=== PATIENT | female | born 1995 | race Hispanic/Latino ===

== ENCOUNTER 2019-01-26 14:07 | Emergency (ER) | payer OTHER, SELFPAY ==
[2019-01-26 14:12] VITALS: BP 116/74; PULSE 124; RESP 16; TEMP 36.6; O2SAT 94; BMI 18.1
== END 2019-01-26 16:31 | disposition left against medical advice (07) ==
PROVIDERS: Emergency Provider Emergency Medicine
DX: S09.90XA Unspecified injury of head, initial encounter (principal)
CPT/HCPCS: 99281

== ENCOUNTER 2021-06-02 13:56 | Emergency (ER) | payer OTHER, MEDICAID, SELFPAY ==
[2021-06-02] VITALS (9 sets, daily range): BP systolic 98–118; BP diastolic 56–76; PULSE 100–124; RESP 18–22; TEMP 36.9; O2SAT 97–100
--- NOTE | 2021-06-02 14:21 | DI.RAD.S_ITS ---
PROCEDURE: XR CHEST 1V INDICATIONS: suspected sepsis TECHNIQUE: One view of the chest was acquired. COMPARISON: [facility], CR, XR TOE LT MIN 2V, 06/02/2021, 14:36. [facility], CR, XR CHEST 1 VIEW, 04/20/2021, 18:00. [facility], CR, XR CHEST 2 VIEWS, 11/07/2017, 1:28. FINDINGS: Surgical changes and devices: None. Lungs and pleura: Lungs are clear. No pleural effusions or pneumothorax. Mediastinum: Mediastinal contours appear normal. Heart size is normal. Bones and chest wall: No suspicious bony lesions. Mild dextroconvex scoliotic curvature is seen. Overlying soft tissues appear unremarkable. IMPRESSION: No focal infiltrates are seen. If there is clinical concern for a developing pulmonary process, a short-term followup chest series (with PA and lateral views, performed in deep inspiration) is suggested for further evaluation. Dictated by: Sae Fuentes M.D. on 06/02/2021 at 13:51 Approved by: Sae Fuentes M.D. on 06/02/2021 at 13:52
--- NOTE | 2021-06-02 14:21 | DI.RAD.S_ITS ---
PROCEDURE: XR TOE LT MIN 2V INDICATIONS: Soft tissue swelling, clinical concern for osteo TECHNIQUE: 3 views of the 2nd toe(s) acquired. COMPARISON: [facility], CR, XR CHEST 1V, 06/02/2021, 14:36. FINDINGS: Bones: There is karon lysis of the distal aspect of the distal phalanx of the 2nd toe. No additional focal bony abnormality is seen. Soft tissues: Focal soft tissue swelling is seen involving the 2nd toe. IMPRESSION: Karon lysis of the distal aspect of the distal phalanx of the 2nd toe, which represents osteomyelitis until proven otherwise. If it would be helpful for clinical management decision making in this patient with this given history, please consider a dedicated forefoot MRI (without and with contrast) for further evaluation (assuming that there is no contraindication). Dictated by: Sae Fuentes M.D. on 06/02/2021 at 13:49 Approved by: Sae Fuentes M.D. on 06/02/2021 at 13:51
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
--- NOTE | 2021-06-02 14:54 | DI.RAD.S_ITS ---
PROCEDURE: XR FOOT RT MIN 3V INDICATIONS: frostbite then trauma TECHNIQUE: 3 views of the foot were acquired. COMPARISON: [facility], CR, XR FOOT LT MIN 3V, 06/02/2021, 14:56. [facility], CR, XR CHEST 1V, 06/02/2021, 14:36. [facility], CR, XR TOE LT MIN 2V, 06/02/2021, 14:36. FINDINGS: Bones: No fractures or dislocations. No suspicious bony lesions. Soft tissues: No tibiotalar joint effusion. Achilles tendon appears normal. IMPRESSION: No significant plain film abnormality is seen. Dictated by: Sae Fuentes M.D. on 06/02/2021 at 14:21 Approved by: Sae Fuentes M.D. on 06/02/2021 at 14:21
--- NOTE | 2021-06-02 14:54 | DI.RAD.S_ITS ---
PROCEDURE: XR FOOT LT MIN 3V INDICATIONS: frostbite then trauma TECHNIQUE: 3 views of the foot were acquired. COMPARISON: [facility], CR, XR FOOT RT MIN 3V, 06/02/2021, 14:56. [facility], CR, XR CHEST 1V, 06/02/2021, 14:36. [facility], CR, XR TOE LT MIN 2V, 06/02/2021, 14:36. [facility], CR, XR FOOT 3+ VIEWS LEFT, 05/17/2021, 11:38. FINDINGS: Bones: At the distal aspect of the distal aspect of the distal phalanx of the 2nd toe, there is new bony license seen, which cannot be seen on the prior plain film study dated 05/17/2021, even in retrospect. No additional focal bony abnormality is seen. Soft tissues: There is soft tissue swelling of the 2nd toe. IMPRESSION: Distal 2nd toe osteomyelitis until proven otherwise. Dictated by: Sae Fuentes M.D. on 06/02/2021 at 14:22 Approved by: Sae Fuentes M.D. on 06/02/2021 at 14:23
[2021-06-02] MEDS: CLINDAMYCIN 900 MG/50 ML PIGGYBACK 50 MG IV (15:00)
[2021-06-02] MEDS: SODIUM CHLORIDE 0.9% 1,000 ML 1000 ML IV (15:00)
[2021-06-02] MEDS: TET,DIPH,PERTUSS(ACELL),VAC/PF 0.5 ML SYRINGE IM (15:01)
[2021-06-02 15:03] LABS: Add Manual Diff / Slide Review NO; Basophils Absolute Auto 100 /uL (0-100); Basophils Percent Auto 0.4 % (0-2); Eosinophils Absolute Auto 0 /uL (0-450); Eosinophils Percent Auto 0.1 % (2-4); Hematocrit 42.9 % (36-46); Hemoglobin 14.4 g/dL (12.0-16.0); Lymphocytes Absolute Auto 1400 /uL (1100-4500); Mean Corpuscular HGB Conc 33.6 % (30-36); Mean Corpuscular Hemoglobin 29.8 PG (26-34); Mean Corpuscular Volume 88.7 fL (80-100); Monocytes Absolute Auto 700 /uL (0-900); Neutrophils Absolute Auto 9700 /uL (1500-7000); Neutrophils Percent Auto 81.5 % (50-75); Platelet Count 255 X10^3/uL (150-400); Red Blood Cell Count 4.84 X10^6/uL (4.0-5.2); Red Cell Distribution Width 13.5 % (11.6-14.8); White Blood Cell Count 11.9 X10^3/uL (4.5-11.0)
[2021-06-02 15:11] LABS: Alanine Aminotransferase 21 IU/L (<35); Albumin 4.6 g/dL (3.5-5.0); Albumin Globulin Ratio 1.1 (1.0-2.8); Alkaline Phosphatase 112 U/L (38-126); Aspartate Aminotransferase 27 IU/L (14-36); BUN Creatinine Ratio 15.2 (6-22); Bilirubin Total 0.5 mg/dL (0.2-1.3); Blood Urea Nitrogen 10 mg/dL (7-17); Calcium 9.4 mg/dL (8.4-10.2); Carbon Dioxide 30 mmol/L (22-32); Chloride 103 mmol/L (98-107); Estimated Glomerular Filt Rate > 60.0 mL/min (>60); Globulin 4.3 g/dL (1.7-4.1); Glucose 55 mg/dL (70-100); HEMOLYSIS < 15 (0-50); Lipase 130 U/L (23-300); Potassium 3.2 mmol/L (3.4-5.1); Sodium 141 mmol/L (137-145); Total Protein 8.9 g/dL (6.3-8.2)
[2021-06-02 15:12] LABS: Lactate (Lactic Acid) 2.2 mmol/L (0.7-2.1)
[2021-06-02 15:28] LABS: Procalcitonin 0.04 ng/mL (<0.5)
[2021-06-02 15:31] LABS: C-Reactive Protein Quant 7.8 mg/dL (<1.0)
[2021-06-02] MEDS: CEFEPIME 2 GM in SODIUM CHLORIDE 0.9% 100 ML 200 ML IV (15:38)
[2021-06-02 15:44] LABS: Erythrocyte Sedimentation Rate 18 MM/HR (0-20)
[2021-06-02 15:47] LABS: COVID19 -Nasal RAPID Negative (Negative)
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
[2021-06-02 16:35] LABS: Reflexed Lactate in 2 Hours Y
[2021-06-02 17:25] LABS: Lactate 2HR (Lactic Acid Rflx) 1.6 mmol/L (0.7-2.1)
== END 2021-06-02 17:07 | disposition home or self-care (01) ==
PROVIDERS: Emergency Provider Emergency Medicine
DX: T34.832A Frostbite with tissue necrosis of left toe(s), initial encounter (principal); T33.821A Superficial frostbite of right foot, initial encounter; T69.8XXA Other specified effects of reduced temperature, initial encounter; M86.9 Osteomyelitis, unspecified; X31.XXXA Exposure to excessive natural cold, initial encounter; Z23 Encounter for immunization; Z20.822 Contact with and (suspected) exposure to COVID-19
CPT/HCPCS: 36415; 71045; 73630; 73660; 80053; 83605; 83690; 84145; 85025; 85651; 86140; 87040; 87635; 90471; 96365; 96366; 96368; 99284; C9803; 90715; J0692

== ENCOUNTER 2021-06-04 11:09 | Emergency (ER) | payer OTHER, MEDICAID, SELFPAY ==
[2021-06-04] VITALS (8 sets, daily range): BP systolic 105–119; BP diastolic 64–69; PULSE 71–100; RESP 14–18; TEMP 36.4; O2SAT 99–100; BMI 17.7
--- NOTE | 2021-06-04 13:17 | PC.NURSE ---
wound appears to be briones bite, skin is black over tip of toe and nail.
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
--- NOTE | 2021-06-04 13:39 | DI.RAD.S_ITS ---
PROCEDURE: XR FOOT LT MIN 3V INDICATIONS: 2nd toe osteomyelitis/frostbite TECHNIQUE: 3 views of the foot were acquired. COMPARISON: [facility], CR, XR TOE LT MIN 2V, 06/02/2021, 14:36. [facility], CR, XR FOOT 3+ VIEWS LEFT, 05/17/2021, 11:38. [facility], CR, XR FOOT LT MIN 3V, 06/02/2021, 14:56. FINDINGS: Bones: There is cortical irregularity and lucency in the tuft of the 2nd distal phalanx. No suspicious bony lesions. Soft tissues: No tibiotalar joint effusion. Achilles tendon appears normal. IMPRESSION: Cortical irregularity and lucency of the tuft of the 2nd distal phalanx compatible with osteomyelitis. Dictated by: Chidi Grimes M.D. on 06/04/2021 at 14:12 Approved by: Chidi Grimes M.D. on 06/04/2021 at 14:16
[2021-06-04 14:23] LABS: Add Manual Diff / Slide Review NO; Basophils Absolute Auto 0 /uL (0-100); Basophils Percent Auto 0.5 % (0-2); Eosinophils Absolute Auto 0 /uL (0-450); Eosinophils Percent Auto 0.5 % (2-4); Hematocrit 39.6 % (36-46); Hemoglobin 13.1 g/dL (12.0-16.0); Lymphocytes Absolute Auto 1600 /uL (1100-4500); Mean Corpuscular Hemoglobin 29.6 PG (26-34); Mean Corpuscular Volume 89.8 fL (80-100); Monocytes Absolute Auto 300 /uL (0-900); Monocytes Percent Auto 5.3 % (3-14); Neutrophils Absolute Auto 3500 /uL (1500-7000); Neutrophils Percent Auto 63.7 % (50-75); Platelet Count 288 X10^3/uL (150-400); Red Blood Cell Count 4.41 X10^6/uL (4.0-5.2); Red Cell Distribution Width 13.6 % (11.6-14.8); White Blood Cell Count 5.5 X10^3/uL (4.5-11.0)
[2021-06-04] MEDS: KETOROLAC 30 MG/ML VIAL IV (14:32)
[2021-06-04] MEDS: PIPERACILLIN/TAZO 4.5 GM in SODIUM CHLORIDE 0.9% 100 ML 200 ML IV (14:32)
[2021-06-04] MEDS: SODIUM CHLORIDE 0.9% 1,000 ML 200 ML IV (14:33)
[2021-06-04 14:38] LABS: Alanine Aminotransferase 22 IU/L (<35); Albumin 3.9 g/dL (3.5-5.0); Albumin Globulin Ratio 1.1 (1.0-2.8); Alkaline Phosphatase 95 U/L (38-126); Aspartate Aminotransferase 24 IU/L (14-36); BUN Creatinine Ratio 13.1 (6-22); Bilirubin Total 0.2 mg/dL (0.2-1.3); Blood Urea Nitrogen 8 mg/dL (7-17); Calcium 9.2 mg/dL (8.4-10.2); Carbon Dioxide 26 mmol/L (22-32); Chloride 109 mmol/L (98-107); Estimated Glomerular Filt Rate > 60.0 mL/min (>60); Globulin 3.7 g/dL (1.7-4.1); Glucose 84 mg/dL (70-100); HEMOLYSIS < 15 (0-50); Potassium 3.6 mmol/L (3.4-5.1); Sodium 143 mmol/L (137-145); Total Protein 7.6 g/dL (6.3-8.2)
[2021-06-04 14:43] LABS: Lactate (Lactic Acid) 1.1 mmol/L (0.7-2.1)
[2021-06-04 14:56] LABS: Procalcitonin < 0.03 ng/mL (<0.5)
[2021-06-04 15:11] LABS: Bacteria Urine None Seen; Culture Indicated Urine Cult Not Indicated; RBC Urine 0-1/HPF (0-5/HPF); Squamous Epithelial Cell Urine 0-1 /HPF (0-5/HPF); WBC Urine None Seen (0-5/HPF)
[2021-06-04 15:14] LABS: COVID19 -Nasal RAPID Negative (Negative)
[2021-06-04] MEDS: VANCOMYCIN 1,000 MG/200 ML PIGGYBACK 200 MG IV (15:38)
== END 2021-06-04 16:58 | disposition home or self-care (01) ==
PROVIDERS: Emergency Provider Emergency Medicine
DX: T34.832A Frostbite with tissue necrosis of left toe(s), initial encounter (principal); M86.9 Osteomyelitis, unspecified; Z20.822 Contact with and (suspected) exposure to COVID-19; X31.XXXA Exposure to excessive natural cold, initial encounter
CPT/HCPCS: 36415; 73630; 80053; 81003; 81015; 81025; 83605; 84145; 85025; 87040; 87070; 87075; 87077; 87147; 87186; 87205; 87635; 96365; 96367; 96375; 99284; C9803; J1885; J2543

== ENCOUNTER 2021-06-07 08:37 | Day surgery (SDC) | payer OTHER, MEDICAID, SELFPAY ==
[2021-06-07] VITALS (8 sets, daily range): BP systolic 94–110; BP diastolic 58–77; PULSE 66–77; RESP 10–17; TEMP 36.1–37.1; O2SAT 99–100; BMI 19.3
--- NOTE | 2021-06-07 09:47 | PM.PREOP ---
Pre-operative Note COVID-19 COVID-19 status: Negative Criteria for continued procedure: Expected advancement of disease process, Possibility delay results in more complex future surgery or treatment, Deterioration of the patient's condition or overall health, Delay expected to result in less-positive ultimate med/surg outcome and Non-surgical alternatives not available or appropriate per current SOC Interval Note History & Physical reviewed/Exam performed by Physician: Yes Changes to H&P: No
[2021-06-07] MEDS: LACTATED RINGERS 1,000 ML 42 ML IV (09:53)
[2021-06-07] MEDS: CEFAZOLIN 2 GM/20 ML SYRINGE IV (10:00)
--- NOTE | 2021-06-07 10:15 | SUR.OPER ---
Supine on padded OR bed, head on pillow, arms secured on padded arm boards at <90 degrees abduction, legs uncrossed, safety belt at waist, tape over blanket over lower right leg. [place] under left hip, left leg propped with blankets and draped free.
[2021-06-07] MEDS: BUPIVACAINE 0.25% (PF) 30 ML, EPINEPHrine 0.15 MG INJ (10:23)
[2021-06-07] MEDS: OXYCODONE IR 5 MG TABLET PO (10:57)
[2021-06-07] MEDS: fentaNYL 100 MCG/2 ML INJ IV (10:58)
--- NOTE | 2021-06-07 11:36 | SUR.PHASEI ---
06/07/21-1113: Care transferred to Ramya PEREZ in [place], break relief. Report given.
--- NOTE | 2021-06-07 12:04 | SUR.PHASEII ---
Updated mom, d/c instructions discussed, all voiced an understanding.
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
== END 2021-06-07 12:15 | disposition home or self-care (01) ==
PROVIDERS: Referring Provider Orthopaedic Surgery Foot and Ankle Surgery; Visit Provider Orthopaedic Surgery Foot and Ankle Surgery
PROC: (CPT 11042; principal; 2021-06-07 09:45)
DX: T34.832A Frostbite with tissue necrosis of left toe(s), initial encounter (principal); F17.210 Nicotine dependence, cigarettes, uncomplicated; Z59.00 Homelessness unspecified
CPT/HCPCS: 11042; 81025; J0171; J0690; J2405; J2704; J3010